=== PATIENT | female | born 1945 | race Caucasian/White ===

== ENCOUNTER 2016-12-10 09:33 | Day surgery (SDC) | payer MEDICARE ==
[2016-12-10] MEDS ORDERED: MIDAZOLAM HCL 2MG/2ML VIAL IV ONE (15:25)
[2016-12-10] MEDS ORDERED: LIDOCAINE 2% MDV (20MG/ML) 20ML VIAL IV ONE (15:25)
[2016-12-10] MEDS ORDERED: PROPOFOL 10 MG/ML VIAL IV ONE (15:25)
--- NOTE | 2016-12-13 13:18 | Operative Note ---
DATE OF SURGERY: 12/10/2016 REFERRING PHYSICIAN: Samir Woo D.O. PROCEDURE: COLONOSCOPY to the cecum. Surgeon: Kun Truong D.O. Indication: Colorectal cancer screening. Intravenous sedation was administered by the Department of Anesthesiology and included Diprivan titrated to effect. PROCEDURE: Following informed consent from this alert individual, including a discussion of the risks and benefits of the procedure and an opportunity for the patient to ask questions, the patient was in the left lateral decubitus position. A digital rectal examination was performed. No abnormalities were detected. Following this, the Olympus PCF-180 video colonoscope was inserted into the rectum without resistance. The rectal mucosa had a normal a appearance, with normal folds and distensibility. The colonoscope was advanced up through the colon to the level of the cecum without much difficulty. Throughout the bowel; the mucosa appeared normal, folds were normal and the bowel was fairly well distensible. The cecum was defined by noting the appendiceal orifice and the ileocecal valve. The colon preparation was good. From the base of the cecum the colonoscope was then withdrawn back through the bowel reexamining the mucosa upon withdrawal. Again no abnormalities were detected throughout. Retroflexion in the rectum was endoscopically unremarkable. The endoscope was straightened and withdrawn. The patient tolerated the procedure well and was returned to the Recovery Area in stable condition. IMPRESSION: Normal colonoscopy of the cecum. RECOMMENDATIONS: The patient was advised she should have recheck colonoscopy in 10 years' time or sooner if problems arise. Follow up will be with Dr. [place] Woo. Kun Truong DO CC: Samir Woo D.O. [facility]ITAL[facility]ando
== END 2016-12-10 11:10 | disposition home or self-care (01) ==
LOC: HOP 09:33
PROVIDERS: ATTEND Internal Medicine Gastroenterology
DX: Z12.11 Encounter for screening for malignant neoplasm of colon (principal)
CPT/HCPCS: 00810; G0121